=== PATIENT | male | born 1960 | race Caucasian/White ===

== ENCOUNTER 2023-10-26 19:35 | Emergency (ER) | payer MEDICARE, OTHER, SELFPAY ==
[2023-10-26 19:40] VITALS: BP 153/77
--- NOTE | 2023-10-26 20:56 | ED.GENMED ---
History of Present Illness
General
Chief Complaint: Abdominal Pain
Source: patient
Exam Limitations: none
Time Seen by Provider: 10/26/23 20:48
Travel History
Have you had any contact with someone who has COVID-19?: No
Do you have any symptoms of coronavirus? Fever > 100 degrees, chills, cough, shortness of breath, sore throat, loss of taste or smell, muscle aches, or headache?: No
History of Present Illness
History of Present Illness:
63-year-old male relatively sudden onset of mid abdominal discomfort. Vague in nature. Started about 2 hours ago. No nausea or vomiting no change in bowels no fever. No back pain. No chest pain or shortness of breath. Symptoms are moderate in
nature but slightly improving
Past History
Past History
ED Past Medical History: HTN and Hypercholesterolemia
ED Past Surgical History: Negative Appendectomy, Bowel resection or Cholecystectomy
Patient has exhibited threatening behavior?: No
Social History
Living: with family
Review of Systems
Review of Systems
All Other Systems: Not applicable
Constitutional: Denies fever or chills
Respiratory: Reports no symptoms
Cardiac: Reports no symptoms
: Reports no symptoms
Phy Exam
Physical Exam
Physical Exam:
GENERAL: Alert and oriented in no apparent distress. Initially getting changed walking around the room in no distress
EYE: Orbits normal.
NECK: Supple
CARDIAC: Regular rate and rhythm without any obvious murmurs.
LUNGS: Clear breath sounds,normal
ABDOMEN: Soft, bowel sounds present. No rebound or guarding no mass or hernia. Testicles normal. Very vague minimal mid abdominal tenderness nonlocalizing
NEUROLOGICAL: Alert and oriented , grossly non-focal
SKIN: Warm and dry, no rash or lesion, no discoloration, skin intact.
MUSCULOSKELETAL: No edema,no deformity.Good color
PSYCH: Normal and appropriate interaction.
Course
Orders/Labs/Results
Orders:
Orders
10/26/23 20:55
IV Insert/Care/Rem.- Treatment PRN
0.9% Sodium Chloride 500 ml [Nss] 500 ml IV BOLUS
10/26/23 20:56
Electrocardiogram (*1) Stat
Reason for Study: Abdominal Pain
CT Abd/Pel (IV only)-DH only Urgent
Comment:
Reason For Exam: Mid abdominal pain
EKG- Treatment ONCE
10/26/23 21:07
Complete Blood Count/With Diff Urgent
Comprehensive Metabolic Panel Urgent
Lipase Urgent
Troponin I Urgent
Urinalysis Reflex To Culture Urgent
Date Specimen was Collected: 10/26/23
Time Specimen was Collected: 21:02
10/26/23 21:35
US Abdomen Limited Urgent
Comment:
Reason For Exam: evaluate liver/gb. elevated lfts. abdominal pain
Abnormal Lab Results
10/26/23
21:07
WBC 11.3 H 10^3/uL
(4.8-10.8)
Absolute Neuts (auto) 8.5 H 10^3/uL
(1.4-6.5)
Neutrophils % 75.7 H %
(42.2-75.2)
Lymphocytes % 18.5 L %
(20.5-51.1)
Carbon Dioxide 32 H mmol/L
(22-30)
BUN 21 H mg/dl
(9-20)
Glucose 143 H mg/dl
(70-99)
AST 77 H U/L
(17-59)
ALT 58 H U/L
(0-50)
10/26/23 21:07
10/26/23 21:07
Vital Signs
Initial and Last Documented VS:
Initial Vital Signs
Temp Pulse Resp BP Pulse Ox
97.6 F 52 16 153/77 99
10/26/23 19:40 10/26/23 19:40 10/26/23 19:40 10/26/23 19:40 10/26/23 19:40
Last Documented Vital Signs
Temp Pulse Resp BP Pulse Ox
97.6 F 70 18 140/94 100
10/26/23 19:40 10/26/23 23:51 10/26/23 23:51 10/26/23 23:51 10/26/23 23:51
MDM/Problems Addressed
Differential Diagnosis Includes:
-Vague mid abdominal symptoms. Patient concerned about cardiac however would be quite low in the abdomen for cardiac issues. For completeness EKG and troponin will be done. Nonsurgical abdomen clinically. Workup including labs CT pending.
*Critical Care Note
Total Time (30-74mins, 75-104mins- exclusive of procedures): Not Applicable
Update Note
Update Note:
CT findings apparently discussed with patient by Dr. Ye.
ED Attending Note
-
Portions of this chart may have been created with voice recognition software.� Occasional wrong word or��sound alike� substitutions may have occurred due to the inherent limitations of voice recognition software.
Discharge Plan
Departure
Patient Disposition: Home (Routine Discharge)
Date of Disposition: 10/26/23
Time of Disposition: 23:49
Patient with high blood pressure during this ER visit?: Yes
Condition: Good
Discharge Problem:
Acute abdominal pain, Minimal transaminase elevation
Instructions: Abdominal Pain, BLOOD PRESSURE
Prescriptions:
No Action
clindamycin HCl 300 MG capsule
300 mg PO TID
doxycycline hyclate 100 MG capsule
100 mg PO Q12 Qty: 41 0RF
Referrals:
UNKNOWN - PT DOES,NOT KNOW [Unknown Provider] -
Activity Restrictions/Additional Instructions:
Follow-up closely with your primary physician
Light diet
Recheck with increasing pain persistent pain or if symptoms or not resolved in 1 to 2 days
Interventions
Interventions:
*Risk Screen - Suicide Last Done: 10/26/23 19:40
*General Assessment Last Done: 10/26/23 19:40
*Neglect/Abuse Screening Last Done: 10/26/23 19:40
ED- Fall Risk Assessment Last Done: 10/26/23 21:05
*ED COVID-19 Vaccine History Last Done: 10/26/23 19:40
*Nursing Disposition Last Done: 10/26/23 23:56
SD-Pfnalc-Aaehshvwjt Assessment Last Done: 10/26/23 21:05
Discharge Date and Time
Discharge Date/Time: 10/26/23 23:56
[2023-10-26 21:07] VITALS: BMI 32.9
[2023-10-26] MEDS: NSS 500 IV (21:11)
[2023-10-26 21:13] LABS: % Basophils 0.4 % (0-2); % Eosinophils 0.4 % (0-6); % Immature Granulocytes 0.3 % (0-0.5); % Lymphocytes 18.5 % (20.5-51.1); % Monocytes 4.7 % (1.7-9.3); % Neutrophils 75.7 % (42.2-75.2); Absolute Basophils 0.1 10^3/uL (0-0.2); Absolute Eosinophils 0.1 10^3/uL (0-0.7); Absolute Lymphocytes 2.1 10^3/uL (1.2-3.4); Absolute Monocytes 0.5 10^3/uL (0.1-0.6); Absolute Neutrophils 8.5 10^3/uL (1.4-6.5); Hematocrit 43.9 % (39.0-52.0); Hemoglobin 15.3 g/dL (13.0-18.0); Mean Corp Hgb Conc. 34.9 g/dL (33.0-37.0); Mean Corpuscular Hgb 30.1 pg (27.0-31.0); Mean Corpuscular Volume 86.4 fL (80.0-94.0); Mean Platelet Volume 9.7 fL (7.4-10.4); Nucleated Red Blood Cells % 0 % (-); Platelet Count 255 10^3/uL (130-400); Red Blood Cell Count 5.08 10^6/uL (4.70-6.10); Red Cell Dist. Width 12.8 % (11.5-14.5); White Blood Cell Count 11.3 10^3/uL (4.8-10.8)
[2023-10-26 21:17] LABS: Urine Albumin Negative (Neg - Trace); Urine Bilirubin Negative (Negative); Urine Character Clear (Clear); Urine Color Yellow; Urine Glucose Negative (Negative); Urine Ketone Negative (Negative); Urine Leukocyte Negative (Negative); Urine Nitrite Negative (Negative); Urine Occult Blood Negative (Negative); Urine Urobilinogen Negative (Neg - 1+)
[2023-10-26 21:29] LABS: ALT (SGPT) 58 U/L (0-50); AST (SGOT) 77 U/L (17-59); Albumin 4.4 g/dl (3.5-5.0); Alkaline Phosphatase 73 U/L (38-126); Blood Urea Nitrogen 21 mg/dl (9-20); Calcium 9.5 mg/dl (8.4-10.2); Carbon Dioxide 32 mmol/L (22-30); Chloride 98 mmol/L (98-107); Estimated Creatinine Clearance 71 ml/min; Glucose 143 mg/dl (70-99); Lipase 75 U/L (23-300); Potassium 3.9 mmol/L (3.5-5.1); Sodium 136 mmol/L (135-145); Total Bilirubin 0.8 mg/dl (0.2-1.3); Total Protein 7.4 g/dl (6.3-8.2); eGFR > 60.00
[2023-10-26 21:37] LABS: Troponin I < 0.012 ng/ml
[2023-10-26 23:51] VITALS: BP 140/94
== END 2023-10-26 23:56 | disposition home or self-care (01) ==
LOC: EMR 19:35
PROVIDERS: EMERGENCY PHYSICIAN Emergency Medicine; FAMILY PHYSICIAN Family Medicine
DX: R10.9 Unspecified abdominal pain (principal); R74.01 Elevation of levels of liver transaminase levels; I10 Essential (primary) hypertension
CPT/HCPCS: 99285; 96360; 96361; 74177; 76705; 80053; 81003; 83690; 84484; 85025; 93005; Q9967

== ENCOUNTER → 2023-11-13 06:23 | Outpatient (REF) | payer MEDICARE, OTHER, SELFPAY ==
[2023-11-13 08:14] LABS: ALT (SGPT) 37 U/L (0-50); AST (SGOT) 34 U/L (17-59); Albumin 4.4 g/dl (3.5-5.0); Alkaline Phosphatase 68 U/L (38-126); Direct Bilirubin 0.2 mg/dl (0.0-0.4); Total Protein 7.3 g/dl (6.3-8.2)
== END ==
LOC: REG 06:23
PROVIDERS: ATTENDING PHYSICIAN Family Medicine
DX: R79.89 Other specified abnormal findings of blood chemistry (principal)
CPT/HCPCS: 36415; 80076

== ENCOUNTER 2024-03-19 14:39 | Emergency (ER) | payer MEDICARE, OTHER, SELFPAY ==
[2024-03-19 14:46] VITALS: BP 135/73
[2024-03-19 15:39] VITALS: BMI 33.3
--- NOTE | 2024-03-19 16:48 | ED.GENMED ---
History of Present Illness
General
Chief Complaint: Skin Surface Trauma
Source: patient
Time Seen by Provider: 03/19/24 16:17
History of Present Illness
History of Present Illness:
63-year-old male with past medical history of hypertension hyperlipidemia presenting to the emergency department for evaluation after he was struck in the head by a brush hog prior to arrival. Patient states that he was painting the undersurface of
the tool but that he did not put it up enough causing it to fall. Patient sustained laceration to the left parietal scalp. Tetanus vaccine is up-to-date. No other injury sustained.
Past History
Past History
ED Past Medical History: HTN and Hypercholesterolemia
ED Past Surgical History: Negative Appendectomy, Bowel resection or Cholecystectomy
Patient has exhibited threatening behavior?: No
Social History
Tobacco: Non-smoker
Alcohol: None
Drug: None
Personal:
Living: with family
Review of Systems
Review of Systems
All Other Systems: ROS reviewed and negative except as documented in HPI and ROS
Phy Exam
Physical Exam
Physical Exam:
GENERAL: Alert , in no apparent distress
EYE: conjunctiva clear
Head: 4 to 5 cm semicircular laceration to the left parietal scalp. Mild oozing but no active arterial spurting
NECK: Supple,
ENT: mmm.
LUNGS: no acute respiratory distress
NEUROLOGICAL: Alert and oriented
SKIN: Warm and dry, skin intact.
MUSCULOSKELETAL: well perfused.
PSYCH: Normal and appropriate interaction.
Scores
Heart Failure Risk
Heart Failure Risk Score: Not Applicable
Heart Score for Chest Pain Patients
STEMI patient?: Not applicable
Withdrawal Assessment of Alcohol
Withdrawal Assessment Completed?: Not applicable
Course
Vital Signs
Initial and Last Documented VS:
Initial Vital Signs
Temp Pulse Resp BP Pulse Ox
98.1 F 73 18 135/73 94
03/19/24 14:46 03/19/24 14:46 03/19/24 14:46 03/19/24 14:46 03/19/24 14:46
Last Documented Vital Signs
Temp Pulse Resp BP Pulse Ox
98.1 F 73 18 135/73 94
03/19/24 14:46 03/19/24 14:46 03/19/24 14:46 03/19/24 14:46 03/19/24 14:46
Procedures
Laceration Closure
Left Lateral Scalp:
Status of Wound: clean
Size of Wound in cm: 5
Description of Wound Edges: sharp
Preparation: cleaned with saline
Anesthesia: 1% Lidocaine with epi
Revision/Debridement: routine- no revision
Type of Closure: single layer closure
Skin Closure Material: skin silvia
Number of sutures: 13
MDM/Problems Addressed
Differential Diagnosis Includes:
scalp laceration, no headache to suggest ICH/calvarial fracture
MDM/Problems Addressed:
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 Laceration repaired as above. Tetanus vaccine up-to-date. Considered CT of the scalp however patient without any headache,
vomiting, visual changes, loss consciousness or use of anticoagulants. Staple removal in 5 to 7 days. Patient advised on wound care. Aware of return precautions to the ER.
*Pulse Oximetry
Patient hypoxic: no
*Critical Care Note
Total Time (30-74mins, 75-104mins- exclusive of procedures): Not Applicable
ED Attending Note
-
Portions of this chart may have been created with voice recognition software.� Occasional wrong word or��sound alike� substitutions may have occurred due to the inherent limitations of voice recognition software.
Discharge Plan
Departure
Patient Disposition: Home (Routine Discharge)
Date of Disposition: 03/19/24
Time of Disposition: 16:49
Patient with high blood pressure during this ER visit?: No
Discharge Problem:
Laceration of head
Instructions: Laceration Repair With Silvia (DC)
Prescriptions:
No Action
clindamycin HCl 300 MG capsule
300 mg PO TID
doxycycline hyclate 100 MG capsule
100 mg PO Q12 Qty: 41 0RF
Referrals:
Eduard Gonzalez DO [Family Provider] -
Activity Restrictions/Additional Instructions:
Staple removal in 5-7 days
Interventions
Interventions:
*Risk Screen - Suicide Last Done: 03/19/24 15:39
*General Assessment Last Done: 03/19/24 14:46
*Neglect/Abuse Screening Last Done: 03/19/24 15:39
ED- Fall Risk Assessment Last Done: 03/19/24 15:38
*ED COVID-19 Vaccine History Last Done: 03/19/24 14:49
ED-Skin Assessment Last Done: 03/19/24 15:38
Discharge Date and Time
Print Language: [id number]
== END 2024-03-19 17:16 | disposition home or self-care (01) ==
LOC: EMR 14:39
PROVIDERS: EMERGENCY PHYSICIAN Student in an Organized Health Care Education/Training Program; FAMILY PHYSICIAN Family Medicine
DX: S01.01XA Laceration without foreign body of scalp, initial encounter (principal); W20.8XXA Other cause of strike by thrown, projected or falling object, initial encounter; Y93.89 Activity, other specified; E78.00 Pure hypercholesterolemia, unspecified; I10 Essential (primary) hypertension
CPT/HCPCS: 99282; 12002

== ENCOUNTER → 2024-03-22 06:28 | Outpatient (REF) | payer MEDICARE, OTHER, SELFPAY ==
[2024-03-22 07:39] LABS: % Basophils 0.6 % (0-2); % Eosinophils 1.1 % (0-6); % Immature Granulocytes 0.1 % (0-0.5); % Lymphocytes 31.9 % (20.5-51.1); % Monocytes 6.8 % (1.7-9.3); % Neutrophils 59.5 % (42.2-75.2); Absolute Eosinophils 0.1 10^3/uL (0-0.7); Absolute Lymphocytes 2.3 10^3/uL (1.2-3.4); Absolute Monocytes 0.5 10^3/uL (0.1-0.6); Absolute Neutrophils 4.2 10^3/uL (1.4-6.5); Hematocrit 43.4 % (39.0-52.0); Hemoglobin 14.9 g/dL (13.0-18.0); Mean Corp Hgb Conc. 34.3 g/dL (33.0-37.0); Mean Corpuscular Hgb 29.9 pg (27.0-31.0); Mean Corpuscular Volume 87.1 fL (80.0-94.0); Mean Platelet Volume 9.8 fL (7.4-10.4); Nucleated Red Blood Cells % 0 % (-); Platelet Count 258 10^3/uL (130-400); Red Blood Cell Count 4.98 10^6/uL (4.70-6.10); Red Cell Dist. Width 12.6 % (11.5-14.5); White Blood Cell Count 7.1 10^3/uL (4.8-10.8)
[2024-03-22 07:50] LABS: ALT (SGPT) 31 U/L (0-50); AST (SGOT) 30 U/L (17-59); Albumin 4.5 g/dl (3.5-5.0); Alkaline Phosphatase 59 U/L (38-126); Blood Urea Nitrogen 12 mg/dl (9-20); Calcium 9.8 mg/dl (8.4-10.2); Carbon Dioxide 31 mmol/L (22-30); Chloride 100 mmol/L (98-107); Glucose 103 mg/dl (70-99); HDL Cholesterol 48 mg/dl; LDL Cholesterol, Calculated 91 mg/dl; Potassium 4.2 mmol/L (3.5-5.1); Sodium 137 mmol/L (135-145); Total Bilirubin 0.8 mg/dl (0.2-1.3); Total Cholesterol 167 mg/dl (50-199); Triglyceride 144 mg/dl (10-149); Very Low Density Lipoprotein 28 mg/dl (0-30); eGFR > 60.00
[2024-03-22 07:55] LABS: Urine Albumin Negative (Neg - Trace); Urine Bilirubin Negative (Negative); Urine Character Clear (Clear); Urine Color Straw; Urine Glucose Negative (Negative); Urine Ketone Negative (Negative); Urine Leukocyte Negative (Negative); Urine Nitrite Negative (Negative); Urine Occult Blood Negative (Negative); Urine Urobilinogen Negative (Neg - 1+)
[2024-03-22 08:17] LABS: PSA, Total - Screen 0.65 ng/ml (0.0-4.0); TSH 0.78 uIU/ml (0.47-4.68)
== END ==
LOC: REG 06:28
PROVIDERS: ATTENDING PHYSICIAN Family Medicine
DX: E78.2 Mixed hyperlipidemia (principal); I10 Essential (primary) hypertension; Z12.5 Encounter for screening for malignant neoplasm of prostate
CPT/HCPCS: 36415; 80053; 80061; 81003; 84443; 85025; G0103

== ENCOUNTER → 2024-05-02 07:06 | Outpatient (REF) | payer MEDICARE, OTHER, SELFPAY | LOC: RCS 07:06 | PROVIDERS: ATTENDING PHYSICIAN Internal Medicine Cardiovascular Disease; FAMILY PHYSICIAN Family Medicine | DX: I10 Essential (primary) hypertension (principal); R01.1 Cardiac murmur, unspecified | CPT/HCPCS: 93306 ==

== ENCOUNTER → 2024-06-28 06:22 | Outpatient (REF) | payer MEDICARE, OTHER, SELFPAY ==
[2024-06-28 08:15] LABS: ALT (SGPT) 46 U/L (0-50); AST (SGOT) 39 U/L (17-59); Albumin 4.5 g/dl (3.5-5.0); Alkaline Phosphatase 50 U/L (38-126); Direct Bilirubin 0.1 mg/dl (0.0-0.4); HDL Cholesterol 48 mg/dl; LDL Cholesterol, Calculated 111 mg/dl; Total Bilirubin 0.6 mg/dl (0.2-1.3); Total Cholesterol 181 mg/dl (50-199); Total Protein 7.1 g/dl (6.3-8.2); Triglyceride 111 mg/dl (10-149); Very Low Density Lipoprotein 22 mg/dl (0-30)
== END ==
LOC: REG 06:22
PROVIDERS: ATTENDING PHYSICIAN Internal Medicine Cardiovascular Disease; FAMILY PHYSICIAN Family Medicine
DX: E78.5 Hyperlipidemia, unspecified (principal)
CPT/HCPCS: 36415; 80061; 80076

== ENCOUNTER → 2024-10-05 06:35 | Outpatient (REF) | payer MEDICARE, OTHER, SELFPAY ==
[2024-10-05 08:02] LABS: ALT (SGPT) 66 U/L (0-50); AST (SGOT) 46 U/L (17-59); Albumin 4.2 g/dl (3.5-5.0); Alkaline Phosphatase 63 U/L (38-126); Direct Bilirubin 0.1 mg/dl (0.0-0.4); HDL Cholesterol 36 mg/dl; LDL Cholesterol, Calculated 46 mg/dl; Total Cholesterol 95 mg/dl (50-199); Total Protein 6.8 g/dl (6.3-8.2); Triglyceride 67 mg/dl (10-149); Very Low Density Lipoprotein 13 mg/dl (0-30)
== END ==
LOC: REG 06:35
PROVIDERS: ATTENDING PHYSICIAN Internal Medicine Cardiovascular Disease; FAMILY PHYSICIAN Family Medicine
DX: E78.2 Mixed hyperlipidemia (principal)
CPT/HCPCS: 36415; 80061; 80076

== ENCOUNTER → 2025-03-03 06:25 | Outpatient (REF) | payer MEDICARE, OTHER, SELFPAY ==
[2025-03-03 08:39] LABS: ALT (SGPT) 29 U/L (0-50); AST (SGOT) 26 U/L (17-59); HDL Cholesterol 36 mg/dl; LDL Cholesterol, Calculated 107 mg/dl; Total Cholesterol 165 mg/dl (50-199); Triglyceride 112 mg/dl (10-149); Very Low Density Lipoprotein 22 mg/dl (0-30)
== END ==
LOC: REG 06:25
PROVIDERS: ATTENDING PHYSICIAN Internal Medicine Cardiovascular Disease; FAMILY PHYSICIAN Family Medicine
DX: E78.2 Mixed hyperlipidemia (principal)
CPT/HCPCS: 36415; 80061; 84450; 84460

== ENCOUNTER → 2025-03-29 14:15 | Outpatient (REF) | payer MEDICARE, OTHER, SELFPAY | LOC: PAVMRI 14:15 | PROVIDERS: ATTENDING PHYSICIAN Family Medicine | DX: M25.561 Pain in right knee (principal) | CPT/HCPCS: 70030; 73721 ==